=== PATIENT | female | born 1960 | race African-American/Black ===

== ENCOUNTER 2020-05-24 13:40 | Emergency (ER) | payer MEDICAID, OTHER ==
[~2020-05-24] VITALS: Ht 157.5 cm; Wt 74.0 kg
[2020-05-24] MEDS ORDERED: KETOROLAC 30MG/ML VIAL IM ONE (14:15)
[2020-05-24 14:56] VITALS: BP 133/86
== END 2020-05-24 15:05 | disposition home or self-care (01) ==
LOC: ER 13:40
DX: M25.511 Pain in right shoulder (principal); I10 Essential (primary) hypertension
CPT/HCPCS: 73030; 96372; 99283; J1885